=== PATIENT | female | born 1975 | race African-American/Black ===

== ENCOUNTER 2018-07-08 22:32 | Emergency (ER) | payer BC ==
[~2018-07-08] VITALS: Ht 175.3 cm; Wt 97.5 kg
--- NOTE | 2018-07-08 22:45 | NUR ---
CALLED PT NAME [id number]. NO ONE RESPONDED. FRIEND STATES PT STEPPED OUT. WILL FOLLOW UP.
[2018-07-08 22:59] VITALS: BP 149/96
== END 2018-07-09 00:43 | disposition home or self-care (01) ==
LOC: ER 22:37
DX: J06.9 Acute upper respiratory infection, unspecified (principal); R51 Headache; I10 Essential (primary) hypertension; F17.200 Nicotine dependence, unspecified, uncomplicated
CPT/HCPCS: 71045; 99283; A4606